=== PATIENT | male | born 2000 | race Caucasian/White ===

== ENCOUNTER 2022-11-21 09:48 | Emergency (ER) | payer OTHER, SELFPAY ==
[2022-11-21 10:01] VITALS: BP 145/87; PULSE 96; RESP 18; TEMP 36.6; O2SAT 99
[2022-11-21 10:51] LABS: Basophils Percent Auto 0.5 % (0.2-1.2); Eosinophils Percent Auto 0.5 % (0-4.4); Hematocrit 46.3 % (42.0-52.0); Hemoglobin 15.8 g/dL (14.0-18.0); Immature Granulocyte Absolute 0.01 K/mm3 (0.00-0.031); Immature Granulocyte Percent A 0.2 % (0-0.5); Lymphocytes Absolute Auto 1.71 K/mm3 (0.9-3.2); Lymphocytes Percent Auto 28.7 % (18.3-44.2); Mean Corpuscular HGB Conc 34.1 g/dl (32-36); Mean Corpuscular Hemoglobin 29.3 pg (26-34); Mean Corpuscular Volume 85.7 fl (80-100); Monocytes Absolute Auto 0.4 K/mm3 (0.1-0.6); Monocytes Percent Auto 6.2 % (2.6-8.5); Neutrophils Absolute Auto 3.8 K/mm3 (1.3-6.7); Neutrophils Percent Auto 63.9 % (45.5-73.1); Platelet Count Result 196 k/mm3 (150-375); Red Cell Distribution Width 11.8 % (11.5-14.5)
[2022-11-21 10:52] LABS: Appearance Urine Clear (Clear); Bilirubin Urine Negative (Negative); Blood Urine Negative (Negative); Color Urine Yellow (Yellow); Glucose Urine UA Negative (Negative); Ketones Urine 1+ mg/dL (Negative); Leukocyte Esterase Ur Negative LEU/UL (Negative); Nitrate Urine Negative (Negative); Protein Urine Negative (Negative); Urobilinogen Urine 0.2 mg/dL (<2.0)
[2022-11-21 11:01] LABS: Alanine Aminotransferase 26 U/L (6-50); Alkaline Phosphatase 64 U/L (38-126); Anion Gap 8 mmol/L (8-16); Aspartate Amino Transferase 24 U/L (17-59); Bilirubin,Total 2.4 mg/dL (0.2-1.3); Blood Urea Nitrogen 12 mg/dL (9-20); Calcium 9.1 mg/dL (8.4-10.2); Carbon Dioxide 29 mmol/L (22-30); Chloride 99 mmol/L (98-107); Estimated CRCL calculation 116 ml/min; Estimated Glomerular Filt Rate > 60; Glucose 93 mg/dL (65-110); Potassium 3.9 mmol/L (3.4-5.0); Sodium 136 mmol/L (137-145)
[2022-11-21 11:02] LABS: Ethanol < 10 mg/dL (<10)
[2022-11-21 11:07] LABS: Amphetamine Screen Urine Negative (Negative); Barbiturate Screen Urine Negative (Negative); Benzodiazepines Screen Urine Negative (Negative); Cannabinoid Screen Urine Positive (Negative); Cocaine Screen Urine Negative (Negative); Methadone Screen Urine Negative (Negative); Opiate Screen Urine Negative (Negative); Phencyclidine Screen Urine Negative (Negative)
[2022-11-21 11:16] LABS: Mucus Urine Moderate /lpf; RBC Urine 0-2 /hpf (0-2); Squamous Epithelial Cell Urine Rare /hpf (Few); WBC Urine 0-3 /hpf
[2022-11-21 11:18] LABS: Add Urine Microscopic? YES
[2022-11-21 11:34] LABS: SARS-CoV-2 RNA PCR Negative
[2022-11-21 11:35] LABS: Thyroid Stimulating Hormone 0.481 uIU/mL (0.465-4.680)
--- NOTE | 2022-11-21 12:40 | PC.NURSE ---
Crisis contacted spoke with Olvin.
--- NOTE | 2022-11-21 14:05 | ED.PSYCH ---
HPI - Psych General Chief Complaint: Psychiatric Symptoms Stated Complaint: si Time Seen by Provider: 11/21/22 10:26 History of Present Illness HPI Narrative: Patient is a 22-year-old male who presents ER with concerns for his mental health. Patient reports he has history of bipolar and has been unmedicated for 7 years. Reports he occasionally hears a voice was mother or friends calling his name. He also hear occasional knocks other people do not hear. No visual hallucinations. Reports he has thoughts of self-harm but has no plan to take his own life. He also reports that he feels like he could take the life and on the person but has no plans and no target at this time. Reports recreational use of marijuana and alcohol but is not had alcohol for about a week. No recent stressors. Review of Systems Review of Systems: All systems reviewed & are unremarkable except as noted in HPI and below Constitutional: Constitutional: Denies chills, Denies fatigue and Denies fever(s) Cardiovascular: Cardiovascular: Denies chest pain, Denies rapid heart rate and Denies radiating jaw, neck or arm pain Respiratory: Respiratory: Denies cough and Denies dyspnea Gastrointestinal: Gastrointestinal: Denies abdominal pain, Denies nausea and Denies vomiting Psychiatric: Psychiatric: Denies anxiety, Reports depression, Reports homicidal ideation and Reports suicidal ideation PMFSH Past Medical History Medical History (Updated 11/21/22 @ 18:06 by Nathen Herman MD) Bipolar disorder Surgical History Surgical History (Updated 11/21/22 @ 14:16 by Nathen Herman MD) No pertinent past surgical history Family History Family History (Updated 06/04/09 @ 17:07 by DOCTOR UNKNOWN) Other Asthma Depression Diabetes mellitus Family history of allergic disorder Family history of arthritis Family history of chronic obstructive pulmonary disease Family history of elevated blood lipids Family history of migraine headaches Family history of obesity Family history of thyroid disease Hypertension Social History Social History Second hand tobacco smoke exposure: Yes Substance use type: marijuana Exam Narrative: GENERAL: Well-appearing, well-nourished, and in no acute distress. HEAD: Normocephalic, atraumatic. ENT: Mucous membranes moist. NECK: Supple. CHEST: Clear to auscultation. No respiratory distress. HEART: Regular rate and rhythm. Normal peripheral pulses. ABDOMEN: Soft, nontender, nondistended. EXTREMITIES: Normal range of motion. No edema. SKIN: Warm, dry, no rash. NEURO: Alert and oriented x3. PSYCH: Flat affect and endorses thoughts of self harm and harm towards others though he has no active plan for either. Not currently responding to internal stimuli. Endorses auditory hallucinations. Course Course Emergency Course: Accepted to [place] by Dr. De La Cruz. Resting comfortably, no issues. Reevaluation(s) Reevaluation #1: Patient medically stable for inpatient psychiatric hospitalization. Patient evaluated by crisis. Patient would be a voluntary admit. Date: 11/21/22 Time: 14:18 Vital Signs Vital signs: Vital Signs Temperature 97.9 F 11/21/22 10:01 Pulse Rate 96 11/21/22 10:01 Respiratory Rate 18 11/21/22 10:01 Blood Pressure 145/87 H 11/21/22 10:01 Pulse Oximetry 99 11/21/22 10:01 Oxygen Delivery Room Air 11/21/22 10:01 Temperature 97.9 F 11/21/22 10:01 Pulse Rate 96 11/21/22 10:01 Respiratory Rate 18 11/21/22 10:01 Blood Pressure 145/87 H 11/21/22 10:01 Pulse Oximetry 99 11/21/22 10:01 Oxygen Delivery Room Air 11/21/22 10:01 MDM - Psych Lab Data 11/21/22 10:40 11/21/22 10:40 Labs: Lab Results 11/21/22 11/21/22 11/21/22 Range/Units 10:40 10:40 10:40 WBC 6.0 (4.5-10.0) K/mm3 RBC 5.40 (4.6-6.20) M/mm3 Hgb 15.8 (14.0-18.0) g/dL Hct 46.3 (42.0-52.0) % MCV 85.7 (80-100) fl MCH 2
--- NOTE | 2022-11-21 15:17 | PC.NURSE ---
PT is on the phone speaking to un[facility].
--- NOTE | 2022-11-21 17:34 | PC.NURSE ---
[facility] asked for voluntary consent with their name on top of Consent.
--- NOTE | 2022-11-21 18:21 | PC.NURSE ---
181 BLS [facility] declined 181 BLS [facility] declined 184 BLS [facility] accepted ETA 184
== END 2022-11-21 19:14 ==
PROVIDERS: Emergency Provider Emergency Medicine
DX: R45.851 Suicidal ideations (principal); F32.A Depression, unspecified; Z20.822 Contact with and (suspected) exposure to COVID-19
CPT/HCPCS: 36415; 80053; 80307; 81001; 84443; 85025; 99285; U0003; U0005